=== PATIENT | female | born 2005 | race Caucasian/White ===

== ENCOUNTER 2023-07-21 13:13 | Inpatient (IN) | payer BC, OTHER ==
[~2023-07-21] VITALS: Ht 157.5 cm; Wt 62.0 kg
[2023-07-21 13:53] LABS: Hematocrit 42.2 % (33.0-51.0); Hemoglobin 14.4 g/dL (11.5-16.0); Mean Corpuscular HGB 29.3 pg (26.0-34.0); Mean Corpuscular HGB Conc 34.1 g/dL (31.5-36.5); Mean Corpuscular Volume 86 fL (80-100); Mean Platelet Volume 11.5 fL (9.1-12.4); Platelet Count 192 K/mm3 (150-400); RDW Coefficient Variation 15.5 % (11.7-14.2); RDW Standard Deviation 48.2 fL (35.1-46.3); Red Blood Cell Count 4.92 M/mm3 (3.80-5.20); White Blood Cell Count 17.22 K/mm3 (4.00-11.30)
[2023-07-21 14:27] LABS: Alanine Aminotransfer (ALT/SGP 427 U/L (12-78); Albumin, Blood 3.5 g/dL (3.4-5.0); Albumin/Globulin Ratio 0.7 (0.8-1.8); Alk Phos 747 U/L (45-116); Anion Gap 14 mmol/L (3-11); Aspartate Aminotrans (AST/SGOT 266 U/L (12-37); CO2, Blood 22 mmol/L (21-32); Calcium, Blood 9.4 mg/dL (8.5-10.1); Chloride, Blood 100 mmol/L (98-108); Creatinine, Blood 1.47 mg/dL (0.40-1.00); Globulin, Blood 4.7 g/dL (2.2-4.0); Glomerular Filtration Rate 52 (60-); Glucose, Blood 98 mg/dL (70-99); Potassium, Blood 4.3 mmol/L (3.5-5.5); Sodium, Blood 132 mmol/L (136-145); Total Protein, Blood 8.2 g/dL (6.4-8.2)
[2023-07-21 14:30] LABS: Blood Urea Nitrogen 19 mg/dL (8-21); Bun/Creatinine Ratio 12.9 (12.0-20.0)
[2023-07-21 14:34] LABS: Acetaminophen, Random <2.0 ug/mL (10.0-30.0)
[2023-07-21 15:33] LABS: BAND PERCENT MAN 1 % (0-8); BASOPHILS ABSOLUTE MAN 0.17 K/mm3 (0.00-0.23); BASOPHILS PERCENT MAN 1 % (0-2); EOSINOPHILS PERCENT MAN 0 % (0-6); LYMPHOCYTES % ATYPICAL MANUAL 1 % (0-0); LYMPHOCYTES ABSOLUTE MAN 10.84 K/mm3 (0.84-5.20); LYMPHOCYTES PERCENT MAN 62 % (21-46); MONOCYTES ABSOLUTE MAN 0.68 K/mm3 (0.16-1.47); MONOCYTES PERCENT MAN 4 % (4-13); NEUTROPHILS ABSOLUTE MAN 5.51 K/mm3 (1.96-9.15); SEG NEUTROPHILS PERCENT MAN 31 % (41-73); TOTAL CELLS COUNTED 100
[2023-07-21] MEDS ORDERED: NS 1,000 ML IV SCH (17:00)
[2023-07-21 17:13] LABS: Source, Urine Clean Catch
[2023-07-21 17:21] LABS: Appearance, Urine Clear (Clear); Blood, Urine 3+ (Neg); Color, Urine Amber (P-Yellow); Glucose Qualitative, Urine Neg (Neg); Ketones, Urine 3+ (Neg); Leukocyte Esterase, Urine 1+ (Neg); Nitrite, Urine Neg (Neg); Protein, Urine 2+ (Neg); Urobilinogen, Urine 2+ (Normal)
[2023-07-21 17:33] LABS: Bilirubin, Urine 1+ (Neg)
[2023-07-21 17:34] LABS: Bacteria Few /hpf; Squamous Epithelial Cells Few /hpf (Few)
[2023-07-21] MEDS ORDERED: Acetaminophen 325 MG TABLET PO PRN (19:35)
[2023-07-21] MEDS ORDERED: Ondansetron HCl 2 MG / ML 2ML Vial IV PRN (19:35)
[2023-07-21] MEDS ORDERED: Lactated Ringer's 1,000 ML IV SCH (20:00)
[2023-07-21] MEDS ORDERED: CefTRIAXone Sodium 1,000 MG in NS 100 ML IV SCH (20:00)
[2023-07-21 20:09] LABS: International Normalized Ratio 1.07; Prothrombin Time Results 11.4 Sec (9.7-11.5)
[2023-07-21] MEDS ORDERED: Penicillin V P500 MG PO (20:23)
[2023-07-21] MEDS ORDERED: Lactobacil 2-S.Thermo-Bifido 1 1 Cap PO SCH (21:00)
[2023-07-21 21:05] VITALS: BP 128/64
[2023-07-22 03:51] VITALS: BP 131/72
[2023-07-22 05:06] LABS: Hematocrit 34.4 % (33.0-51.0); Hemoglobin 11.9 g/dL (11.5-16.0); Mean Corpuscular HGB 28.8 pg (26.0-34.0); Mean Corpuscular HGB Conc 34.6 g/dL (31.5-36.5); Mean Corpuscular Volume 83 fL (80-100); Mean Platelet Volume 11.4 fL (9.1-12.4); Platelet Count 168 K/mm3 (150-400); RDW Coefficient Variation 15.4 % (11.7-14.2); RDW Standard Deviation 45.9 fL (35.1-46.3); Red Blood Cell Count 4.13 M/mm3 (3.80-5.20); White Blood Cell Count 11.93 K/mm3 (4.00-11.30)
[2023-07-22 05:20] LABS: International Normalized Ratio 1.09; Prothrombin Time Results 11.6 Sec (9.7-11.5)
--- NOTE | 2023-07-22 06:02 | NUR ---
SHIFT SUMMARY: SISTER RAMONA IS A&OX4. VSS, NO ACUTE EVENTS OVERNIGHT. PT HAS C/O SORE THROAT. PT TRIED ICE CHIPS, SALT WATER GARGLE, AND APAP WITH MINIMAL IMPROVEMENT. SHE IS INDEPENDENT IN THE ROOM, DENIES ANY DIFFICULTY WITH ELIMINATION. SHE HAS HAD POOR PO INTAKE D/T THE THROAT PAIN. IV TO LEFT AC PATENT, FLUIDS INFUSING. EDUCATED ON NUTRITION AND HEALING AND ENCOURAGED PO INTAKE. SHE IS LYING IN BED WITH THE CALL LIGHT IN REACH, BED IN LOWEST POSITION. WILL GIVE REPORT TO DAY SHIFT RN.
[2023-07-22 06:03] LABS: Albumin, Blood 2.8 g/dL (3.4-5.0); Albumin/Globulin Ratio 0.8 (0.8-1.8); Bilirubin, Total 5.4 mg/dL (0.1-1.0); Bun/Creatinine Ratio 16.2 (12.0-20.0); Calcium, Blood 8.6 mg/dL (8.5-10.1); Creatinine, Blood 1.05 mg/dL (0.40-1.00); Globulin, Blood 3.7 g/dL (2.2-4.0); Magnesium, Blood 2.3 mg/dL (1.6-2.4); Potassium, Blood 3.4 mmol/L (3.5-5.5); Total Protein, Blood 6.5 g/dL (6.4-8.2)
[2023-07-22 06:24] LABS: BASOPHILS PERCENT MAN 0 % (0-2); EOSINOPHILS PERCENT MAN 0 % (0-6); LYMPHOCYTES % ATYPICAL MANUAL 3 % (0-0); LYMPHOCYTES ABSOLUTE MAN 6.91 K/mm3 (0.84-5.20); LYMPHOCYTES PERCENT MAN 55 % (21-46); MONOCYTES ABSOLUTE MAN 0.11 K/mm3 (0.16-1.47); MONOCYTES PERCENT MAN 1 % (4-13); NEUTROPHILS ABSOLUTE MAN 4.89 K/mm3 (1.96-9.15); SEG NEUTROPHILS PERCENT MAN 41 % (41-73); TOTAL CELLS COUNTED 100
[2023-07-22] MEDS ORDERED: Potassium Chloride 20 MEQ TabCR PO ONE (07:55)
[2023-07-22 08:00] VITALS: BP 123/68
[2023-07-22] MEDS ORDERED: Enoxaparin 40 MG/0.4 ML SYR SC SCH (09:00)
[2023-07-22] MEDS ORDERED: DEXTROMETHORPHAN/BENZOCAINE 1 EACH LOZENGE MT PRN (09:10)
[2023-07-22 14:38] VITALS: BP 134/76
--- NOTE | 2023-07-22 17:55 | NUR ---
PT IS A/OX4, PLEASANT AND COOPERATIVE. THE PT IS UP [place]. IN HER ROOM. THE PT CONTINUES TO HAVE A HARD TIME SWALLOWING FOOD AND DRINKING WATER. WARM SOUPS AND SOFT FOODS WERE ORDERED FOR THE PT. THIS AFTERNOON THE PT WAS FLUSHED IN APPEARANCE AND HAD A TEMP OF 102.4 THE PT WAS COOLED DOWN WITH ICE PACKS AND GIVEN TYLENOL. TEMP RECHECKED IN 1/2 HR WAS 100.6. WILL CONTINUE TO MONIOTR. THE PT HAD A [employer] MEMBER VISITING AT THE BEDSIDE FOR MOST OF THE DAY. CALL LIGHT IN REACH.
[2023-07-22] MEDS ORDERED: Lactated Ringer's 1,000 ML IV SCH (18:00)
[2023-07-22 19:21] VITALS: BP 125/74
[2023-07-23 03:57] VITALS: BP 123/76
--- NOTE | 2023-07-23 05:25 | NUR ---
Patient is alert and oriented, using call light appropriately for needs. PRN tylenol PO given once for report of pain, PRN chloraseptic lozenges at bedside for use. Patient ambulating independently to bathroom, tolerating IV LR hydration at 75 mL/hr.
[2023-07-23 05:51] LABS: Hematocrit 34.7 % (33.0-51.0); Hemoglobin 11.9 g/dL (11.5-16.0); Mean Corpuscular HGB 28.7 pg (26.0-34.0); Mean Corpuscular HGB Conc 34.3 g/dL (31.5-36.5); Mean Corpuscular Volume 84 fL (80-100); Platelet Count 176 K/mm3 (150-400); RDW Coefficient Variation 15.9 % (11.7-14.2); RDW Standard Deviation 47.4 fL (35.1-46.3); Red Blood Cell Count 4.15 M/mm3 (3.80-5.20); White Blood Cell Count 9.08 K/mm3 (4.00-11.30)
[2023-07-23 06:31] LABS: Albumin, Blood 2.8 g/dL (3.4-5.0); Albumin/Globulin Ratio 0.7 (0.8-1.8); Bilirubin, Total 4.5 mg/dL (0.1-1.0); Bun/Creatinine Ratio 13.8 (12.0-20.0); Calcium, Blood 9.2 mg/dL (8.5-10.1); Creatinine, Blood 0.72 mg/dL (0.40-1.00); Globulin, Blood 3.9 g/dL (2.2-4.0); Potassium, Blood 3.9 mmol/L (3.5-5.5); Total Protein, Blood 6.7 g/dL (6.4-8.2)
[2023-07-23 07:35] VITALS: BP 125/76
[2023-07-23] MEDS ORDERED: CefTRIAXone Sodium 1,000 MG in NS 100 ML IV SCH (09:00)
[2023-07-23] MEDS ORDERED: VISBIOME 112.51 EACH PO (11:35)
[2023-07-23] MEDS ORDERED: CEPH500 PO (11:35)
--- NOTE | 2023-07-23 12:20 | NUR ---
PATIENT D/C'D TO HOME WITH FRIEND. DC INSTRUCTIONS AND EDUCATION DISCUSSED WITH PATIENT AND COPY PROVIDED. RX MEDICATIONS FAXED TO [facility] ON IN [address]. PATIENT TO FOLLOW UP WITH PCP IN [place]. DENIES ANY FURTHER QUESTIONS OR CONCERNS.
== END 2023-07-23 12:07 | disposition home or self-care (01) | DRG 442 ==
LOC: ER 13:13 → MEDS 19:31 → ENPENDDIS 07-23 10:48 → MEDS 07-23 12:07
PROVIDERS: Internal Medicine; Physician Assistant; ADMIT Student in an Organized Health Care Education/Training Program
DX: K75.9 Inflammatory liver disease, unspecified (principal); N39.0 Urinary tract infection, site not specified; B27.90 Infectious mononucleosis, unspecified without complication; E87.6 Hypokalemia; J02.9 Acute pharyngitis, unspecified
CPT/HCPCS: 36415; 74177; 76705; 80048; 80053; 80076; 81001; 83735; 85025; 85027; 85610; 86308; 87077; 87086; 87186; 96361; 96365-59; 99284-25; A9270; G0480; J0696; J7030; J7120; Q9967